=== PATIENT | male | born 1975 | race Caucasian/White ===

== ENCOUNTER 2023-06-29 17:00 | Outpatient (CLI) | payer SELFPAY | END 2023-06-29 17:01 | disposition home or self-care (01) | LOC: SLEEPLAB 17:00 | PROVIDERS: ATTEND Internal Medicine | DX: G47.30 Sleep apnea, unspecified (principal); R53.83 Other fatigue; R06.83 Snoring; I48.0 Paroxysmal atrial fibrillation | CPT/HCPCS: 95800 ==

== ENCOUNTER 2023-07-27 16:00 | Outpatient (CLI) | payer SELFPAY | END 2023-07-27 16:01 | disposition home or self-care (01) | LOC: SLEEPLAB 16:00 | PROVIDERS: ATTEND Internal Medicine | DX: G47.30 Sleep apnea, unspecified (principal); R53.83 Other fatigue; R06.83 Snoring; I48.0 Paroxysmal atrial fibrillation; G47.61 Periodic limb movement disorder; I49.3 Ventricular premature depolarization | CPT/HCPCS: 95810 ==